=== PATIENT | female | born 1930 | race Caucasian/White ===

== ENCOUNTER 2016-02-26 12:54 | Emergency (ER) | payer MEDICAID, MEDICARE ==
[~2016-02-26] VITALS: Ht 134.6 cm; Wt 65.5 kg
[~2016-02-26 12:54] MED LIST: ASPI-535; CALC1TAB48; DOCU-144; FLUO20CA22; HYDR25TA6; LORA10TA; LOSA100T47; NAPR375T; OMEP20TA42; PRAV40TA
[2016-02-26 13:15] VITALS: Ht 134.6 cm; Wt 65.5 kg
[2016-02-26] MEDS ORDERED: IPRATROPIUM (NEB) 0.5 MG/2.5 ML AMP NEB STA (16:24)
[2016-02-26] MEDS ORDERED: ALBUTEROL 0.5% (NEB) 2.5 MG/0.5 ML AMP NEB STA (16:24)
[2016-02-26] MEDS ORDERED: METHYLPREDNISOLONE 125 MG INJ IV STA (16:24)
[2016-02-26] MEDS ORDERED: FLUO20CA22 PO (16:28)
[2016-02-26] MEDS ORDERED: OMEP20CA16 PO (16:29)
[2016-02-26] MEDS ORDERED: HYD25 PO (16:29)
[2016-02-26] MEDS ORDERED: LOSA100T7 PO (16:29)
[2016-02-26] MEDS ORDERED: ATOR40TA68 PO (16:30)
[2016-02-26 17:02] LABS: BASOPHILS % 0.3 % (0.0-2.0); EOSINOPHILS # 0.8 10^3/ul (0.0-0.5); EOSINOPHILS % 9.6 % (0.0-7.0); HEMATOCRIT 41.9 % (37.0-47.0); LYMPHOCYTES # 1.7 10^3/ul (0.8-2.9); LYMPHOCYTES % 21.2 % (15.0-51.0); MEAN CORPUSCULAR HEMOGLOBIN 28.7 pg (29.0-33.0); MEAN CORPUSCULAR HGB CONC 33.5 g/dl (32.0-37.0); MEAN CORPUSCULAR VOLUME 85.7 fl (82.0-101.0); MEAN PLATELET VOLUME 10.4 fl (7.4-10.4); MONOCYTE # 0.8 10^3/ul (0.3-0.9); MONOCYTES % 10.4 % (0.0-11.0); NEUTROPHIL # 4.6 10^3/ul (1.6-7.5); NEUTROPHILS % 58.5 % (39.0-77.0); PLATELET COUNT 208 10^3/UL (140-440); RED BLOOD COUNT 4.89 10^6/ul (4.20-5.40); RED CELL DISTRIBUTION WIDTH 13.9 % (11.5-14.5); UNCORRECTED WBC 7.9 10^3/ul (4.8-10.8); WHITE BLOOD COUNT 7.9 10^3/ul (4.8-10.8)
[2016-02-26 17:07] LABS: CONDITION 1
[2016-02-26 17:14] LABS: CHLORIDE 102 mmol/L (97-110); SODIUM 142 mmol/L (135-144)
[2016-02-26 17:15] LABS: POTASSIUM 4.1 mmol/L (3.5-5.1)
[2016-02-26 17:17] LABS: CREATININE 0.55 mg/dl (0.44-1.00)
[2016-02-26 17:18] LABS: ANION GAP 15 (8-16); BLOOD UREA NITROGEN 15 mg/dl (7-20); CARBON DIOXIDE 29 mmol/L (21-31); GLUCOSE 92 mg/dl (70-220)
[2016-02-26 17:40] LABS: TROPONIN-I < 0.012 ng/ml (0.00-0.12)
--- NOTE | 2016-02-26 18:10 | RADRPT ---
PROCEDURE: XR Chest. CLINICAL INDICATION: Chest pain. TECHNIQUE: Single frontal chest x-ray. COMPARISON: None. FINDINGS: The lungs are clear of acute infiltrates, edema, effusions, or masses. Calcific atherosclerosis of t he aorta is present. Prominent interstitial markings are present likely chronic or senescent in natu re.. The cardiomediastinal silhouette is unremarkable. The osseous structures are intact. Left axi llary node dissection clips are present. IMPRESSION: No acute cardiopulmonary disease. Senescent changes of the chest RPTAT: [facility] .Niraj Santos MD, MD Date Time Electronically viewed and signed by .Niraj Santos MD, MD on 02/26/2016 18:09 .L/
[2016-02-26] MEDS ORDERED: AZIT250T94 PO (19:21)
[2016-02-26] MEDS ORDERED: ALBU8.5H3 INH (19:21)
[2016-02-26] MEDS ORDERED: PRED20TA PO (19:21)
--- NOTE | 2016-02-26 19:28 | ERD ---
ER Documentation Chief Complaint Date/Time DATE: 02/26/16 TIME: 19:21 Chief Complaint C/O COUGH FOR THREE DAYS HPI This 85-year-old female complains of cough for 3 days described as loose with occasional clear productive sputum. She has no shortness of breath no exertional dyspnea or orthopnea no swelling in the legs. No fever no abdominal pain vomiting diarrhea. She says she does occasionally have some sore ribs when she coughs but no pain now. ROS All systems reviewed and are negative except as per history of present illness. Medications Home Meds Active Scripts Albuterol Sulfate* (Proair HFA*) 8.5 Gm Hfa.aer.ad, 2 PUFF INH Q4, #1 INHALER Prov:JONI LOPES DO 02/26/16 Prednisone* (Prednisone*) 20 Mg Tab, 60 MG PO DAILY for 4 Days, TAB Prov:JONI LOPES DO 02/26/16 Azithromycin* (Zithromax*) 250 Mg Tablet, 250 MG PO .KELVIN DIRECTED, #6 TAB TAKE 500 MG (2 TABS) THE FIRST DAY THEN 250 MG (1 TAB) DAYS 2-5 Prov:JONI LOPES DO 02/26/16 Reported Medications Atorvastatin* (Atorvastatin*) 40 Mg Tablet, 40 MG PO DAILY, #30 TAB 02/26/16 Omeprazole* (Omeprazole*) 20 Mg Capsule.dr, 20 MG PO DAILY, #30 CAP 02/26/16 Losartan Potassium* (Losartan Potassium*) 100 Mg Tablet, 100 MG PO DAILY, TAB 02/26/16 Hydrochlorothiazide* (Hydrochlorothiazide*) 25 Mg Tab, 25 MG PO DAILY, #30 TAB 02/26/16 Fluoxetine Hcl* (Fluoxetine Hcl*) 20 Mg Capsule, 20 MG PO QAM, CAP 02/26/16 Discontinued Reported Medications Calcium Carbonate/Vitamin D3 (Oyst Garrett D 500 Mg Tablet) 1 Tab Tablet, BID 07/19/11 Losartan Potassium* (Cozaar*) 100 Mg Tablet, DAILY 07/19/11 Docusate Sodium* (Colace*) 100 Mg Capsule, BID 07/19/11 Hydrochlorothiazide (Hydrochlorothiazide) 25 Mg Tablet, DAILY 07/19/11 Loratadine (Allerclear) 10 Mg Tablet, HS 07/19/11 Omeprazole (Omeprazole) 20 Mg Tablet., DAILY 07/19/11 Pravastatin Sodium* (Pravachol*) 40 Mg Tablet, DAILY 07/19/11 Aspirin Ec (Aspir 81) 81 Mg Tablet., DAILY 07/19/11 Fluoxetine Hcl* (Fluoxetine Hcl*) 20 Mg Capsule, DAILY 07/19/11 Naproxen* (Naprosyn*) 375 Mg Tablet, DAILY 07/19/11 Hydrochlorothiazide (Hydrochlorothiazide) 25 Mg Tablet 12/07/09 Allergies Allergies: Coded Allergies: No Known Drug Allergy (Verified Allergy, Mild, 02/26/16) PMhx/Soc History of Surgery: Yes (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 HYPERTENSION) Hx Psychiatric Problems: Yes (INSOMIA) Hx Miscellaneous Medical Probl: No Hx Alcohol Use: No Hx Substance Use: No Hx Tobacco Use: No Smoking Status: Never smoker FmHx Family History: No coronary disease Physical Exam Vitals Vital Signs Date Time Temp Pulse Resp B/P Pulse Ox O2 Delivery O2 Flow Rate FiO2 02/26/16 18:42 93 22 137/65 98 Room Air 02/26/16 17:53 66 18 97 21 02/26/16 16:30 98.2 84 18 148/60 100 02/26/16 16:03 Nasal Cannula 02/26/16 13:15 98.0 81 18 137/65 98 Physical Exam Const: Well-developed, well-nourished Head: Atraumatic, normocephalic Eyes: Normal Conjunctiva, PERRLA, EOMI, normal sclera, no nystagmus ENT: Normal External Ears, Nose and Mouth, moist mucus membranes. Neck: Full range of motion. No meningismus, no lymphadenopathy. Resp: Clear to auscultation bilaterally, no wheezing, rhonchi, rales Cardio: Regular rate and rhythm, no murmurs, S1 S2 present, there is some mild anterior upper chest wall tenderness to palpation Abd: Soft, non tender x 4, non distended. Normal bowel sounds, no guarding or rebound, no pulsitile abdominal masses or bruits Skin: No petechiae or rashes, no ecchymosis , no maculopapular rash Back: No midline or flank tenderness Ext: No cyanosis, or edema, FROM x 4, normal inspection, neurovascularly intact x 4 Neur: Awake and alert, STR 5/5 x 4, sensation intact x 4, no focal findings, cerebellum intact Psych: Normal Mood and Affect Result Diagram: 02/26/16 1640 02/26/16 1640 Results 24 hrs Laboratory Tests Test 02/26/16 16:40 Anion Gap 15 Basophils # 0.010^3/ul Basophils % 0.3% Blood Morphology Comment Blood Urea Nitrogen 15mg/dl Calcium Level 10.0mg/dl Carbon Dioxide Level 29mmol/L Chloride Level 102mmol/L Creatinine 0.55mg/dl Eosinophils # 0.810^3/ul Eosinophils % 9.6% Glucose Level 92mg/dl Hematocrit 41.9% Hemoglobin 14.0g/dl Lymphocytes # 1.710^3/ul Lymphocytes % 21.2% Mean Corpuscular Hemoglobin 28.7pg Mean Corpuscular Hemoglobin Concent 33.5g/dl Mean Corpuscular Volume 85.7fl Mean Platelet Volume 10.4fl Monocytes # 0.810^3/ul Monocytes % 10.4% Neutrophils # 4.610^3/ul Neutrophils % 58.5% Nucleated Red Blood Cells # 0.010^3/ul Nucleated Red Blood Cells % 0.0/100WBC Platelet Count 97712^3/UL Potassium Level 4.1mmol/L Red Blood Count 4.8910^6/ul Red Cell Distribution Width 13.9% Sodium Level 142mmol/L Troponin I < 0.012ng/ml White Blood Count 7.910^3/ul Current Medications Medications (Trade) Dose Ordered Sig/Earl Route PRN Reason Start Time Stop Time Status Last Admin Dose Admin Albuterol (Proventil 0.5% (Neb)) 7.5 mg ONCE STAT NEB 02/26/16 16:24 02/26/16 16:27 DC 02/26/16 17:51 Ipratropium [place] (Atrovent 0.02% (Neb)) 1.5 mg ONCE STAT NEB 02/26/16 16:24 02/26/16 16:27 DC 02/26/16 17:52 Methylprednisolone Sodium Succinate (Solu-Medrol) 125 mg ONCE STAT IV 02/26/16 16:24 02/26/16 16:28 DC 02/26/16 16:36 Procedures/MDM PROCEDURE: XR Chest. CLINICAL INDICATION: Chest pain. TECHNIQUE: Single frontal chest x-ray. COMPARISON: None. FINDINGS: The lungs are clear of acute infiltrates, edema, effusions, or masses. Calcific atherosclerosis of the aorta is present. Prominent interstitial markings are present likely chronic or senescent in nature.. The cardiomediastinal silhouette is unremarkable. The osseous structures are intact. Left axillary node dissection clips are present. IMPRESSION: No acute cardiopulmonary disease. Senescent changes of the chest RPTAT: [facility] .Niraj Santos MD, MD Date Time Electronically viewed and signed by .Niraj Santos MD, MD on 02/26/2016 18:09 .L/ CC: JONI LOPES DO EKG: Rate/Rhythm: Normal Sinus Rhythm,NL intervals QRS, ST, QT: NORMAL [place], QRS, QT] Impression: NORMAL EKG Patient was given some breathing treatments and feels much better. No evidence of pneumonia on chest x-ray. Anterior chest wall pain is clearly with cough only cardiac. EKG is normal troponin is negative. We will treat with Zithromax prednisone and albuterol. Oxygenation is 98% on room air right now Departure Diagnosis: Primary Impression: Bronchitis Condition: Stable Patient Instructions: Bronchitis, Antiobiotic Treatment (Adult) JONI LOPES DO Feb 26, 2016 19:28
[2016-02-26 19:46] VITALS: BP 120/56; PULSE 94; RESP 20; TEMP 97.7
== END 2016-02-26 19:54 | disposition home or self-care (01) ==
LOC: E/R 12:54
DX: J20.9 Acute bronchitis, unspecified (principal); I10 Essential (primary) hypertension; Z85.3 Personal history of malignant neoplasm of breast
CPT/HCPCS: 36415; 71010; 80048; 84484; 85025; 93005; 94664; 96374; 99285; J2930

== ENCOUNTER 2016-11-06 11:15 | Emergency (ER) | payer MEDICARE, OTHER ==
[~2016-11-06] VITALS: Ht 147.3 cm; Wt 62.0 kg
[~2016-11-06 11:15] MED LIST changes: +ALBU8.5H3 INH; -ASPI-535; +ASPI-664 PO; +ATEN50TA PO; +ATOR40TA68 PO; +AZIT250T94 PO; -CALC1TAB48; +CALC500T99 PO; -DOCU-144; -FLUO20CA22; +FLUO20CA22 PO; +FLUO20CA38 PO; -HYDR25TA6; +HYDR25TA6 PO; -LORA10TA; +LORA10TA3 PO; -LOSA100T47; +LOSA100T7 PO; +LOVA20TA PO; -NAPR375T; +OMEP20CA16 PO; -OMEP20TA42; -PRAV40TA; +PRED20TA PO
[2016-11-06 11:20] VITALS: Ht 147.3 cm; Wt 62.0 kg
[2016-11-06] MEDS ORDERED: PRED20TA PO (12:55)
[2016-11-06] MEDS ORDERED: AZIT250T94 PO (12:55)
[2016-11-06] MEDS ORDERED: ALBU8.5H3 INH (12:55)
--- NOTE | 2016-11-06 12:59 | ERD ---
ER Documentation Chief Complaint Date/Time DATE: 11/06/16 TIME: 12:57 Chief Complaint pt bib family with c/o cough HPI This 86-year-old female who is had 7 months of cough. Patient was seen in the ER several months ago and was treated and symptoms are not better. She has a chronic tickle in her throat and the patient says her cough is worse when she lays down at night. There is no phlegm production or shortness of breath no chest pain no fever. There is no blood/productive sputum ROS All systems reviewed and are negative except as per history of present illness. Medications Home Meds Active Scripts Albuterol Sulfate* (Proair HFA*) 8.5 Gm Hfa.aer.ad, 2 PUFF INH Q4, #1 INHALER Prov:ANCELMO LOPESSTKARENS A. DO 11/06/16 Prednisone* (Prednisone*) 20 Mg Tab, 60 MG PO DAILY for 5 Days, TAB Prov:ANCELMO LOPESSTOLOS A. DO 11/06/16 Azithromycin* (Zithromax*) 250 Mg Tablet, 250 MG PO .ZPACK DIRECTED, #6 TAB TAKE 500 MG (2 TABS) THE FIRST DAY THEN 250 MG (1 TAB) DAYS 2-5 Prov:ANCELMO LOPESSTOLOS A. DO 11/06/16 Albuterol Sulfate* (Proair HFA*) 8.5 Gm Hfa.aer.ad, 2 PUFF INH Q4, #1 INHALER Prov:ANCELMO LOPESSTOLOS A. DO 02/26/16 Prednisone* (Prednisone*) 20 Mg Tab, 60 MG PO DAILY for 4 Days, TAB Prov:ANCELMO LOPESSTOLOS A. DO 02/26/16 Azithromycin* (Zithromax*) 250 Mg Tablet, 250 MG PO .ZPACK DIRECTED, #6 TAB TAKE 500 MG (2 TABS) THE FIRST DAY THEN 250 MG (1 TAB) DAYS 2-5 Prov:AYANNA LOPESS A. 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 HYPERTENSION, CHF) Hx Psychiatric Problems: Yes (INSOMIA) Hx Miscellaneous Medical Probl: No Hx Alcohol Use: No Hx Substance Use: No Hx Tobacco Use: No Smoking Status: Never smoker FmHx Family History: No coronary disease Physical Exam Vitals Vital Signs Date Time Temp Pulse Resp B/P Pulse Ox O2 Delivery O2 Flow Rate FiO2 11/06/16 11:20 98.2 95 20 149/68 96 Physical Exam Const: Well-developed, well-nourished Head: Atraumatic, normocephalic Eyes: Normal Conjunctiva, PERRLA, EOMI, normal sclera, no nystagmus ENT: Normal External Ears, Nose and Mouth, moist mucus membranes. Neck: Full range of motion. No meningismus, no lymphadenopathy. Resp: Clear to auscultation bilaterally, no wheezing, rhonchi, rales Cardio: Regular rate and rhythm, no murmurs, S1 S2 present Abd: Soft, non tender x 4, non distended. Normal bowel sounds, no guarding or rebound, no pulsitile abdominal masses or bruits Skin: No petechiae or rashes, no ecchymosis , no maculopapular rash Back: No midline or flank tenderness Ext: No cyanosis, or edema, FROM x 4, normal inspection, neurovascularly intact x 4 Neur: Awake and alert, STR 5/5 x 4, sensation intact x 4, no focal findings, cerebellum intact Psych: Normal Mood and Affect Procedures/MDM Patient likely has chronic rhinitis causing some postnasal drainage causing a tickle in the throat inducing the cough. Symptoms are consistent with this and plus is worse at night. Nonetheless we will treat with a bronchitis approach as well as having her buy some [id number] Claritin to dry out her drainage PROCEDURE: Chest x-ray CLINICAL INDICATION: Chest pain TECHNIQUE: Chest single view COMPARISON: 02/26/2016 FINDINGS: There is stable mild cardiomegaly and an sclerotic aortic calcification. Pulmonary vessels are normal in caliber. Chronic interstitial changes are seen. There is low lung volumes with mild right lung volume loss. No confluent pneumonias identified. Costophrenic angles are sharp. As before there is surgical clips in the left axilla. IMPRESSION: 1. Stable mild cardiomegaly and atherosclerotic aortic calcification. 2. Chronic interstitial lung changes and mild fibrosis. 3. Low lung volumes RPTAT: HH .Albin Dowd MD, MD Date Time Electronically viewed and signed by .Albin Dowd MD, on 11/06/2016 13:14 .W/ CC: JONI LOPES DO Departure Diagnosis: Primary Impression: Bronchitis Additional Impression: Postnasal drip Condition: Stable Patient Instructions: Bronchitis, Antiobiotic Treatment (Adult) JONI LOPES DO Nov 06, 2016 12:59
--- NOTE | 2016-11-06 13:14 | RADRPT ---
PROCEDURE: Chest x-ray CLINICAL INDICATION: Chest pain TECHNIQUE: Chest single view COMPARISON: 02/26/2016 FINDINGS: There is stable mild cardiomegaly and an sclerotic aortic calcification. Pulmonary vessels are mara l in caliber. Chronic interstitial changes are seen. There is low lung volumes with mild right lung volume loss. No confluent pneumonias identified. Costophrenic angles are sharp. As before there is s urgical clips in the left axilla. IMPRESSION: 1. Stable mild cardiomegaly and atherosclerotic aortic calcification. 2. Chronic interstitial lung changes and mild fibrosis. 3. Low lung volumes RPTAT: HH .Albin Dowd MD, MD Date Time Electronically viewed and signed by .Albin Dowd MD, on 11/06/2016 13:14 .W/
== END 2016-11-06 14:02 | disposition home or self-care (01) ==
LOC: FTE 11:15
DX: J20.9 Acute bronchitis, unspecified (principal); R09.82 Postnasal drip; I10 Essential (primary) hypertension; I50.9 Heart failure, unspecified; Z85.3 Personal history of malignant neoplasm of breast
CPT/HCPCS: 71010

== ENCOUNTER 2018-01-06 01:20 | Observation (INO) | END 2018-01-08 15:50 | disposition home or self-care (01) ==